=== PATIENT | female | born 1980 | race Two or more races ===

== ENCOUNTER 2024-08-28 10:13 | Emergency (ER) | payer MEDICAID ==
[~2024-08-28] VITALS: Ht 177.8 cm; Wt 68.0 kg
[2024-08-28 10:14] VITALS: O2SAT 100
[2024-08-28 10:28] VITALS: BP 121/84; PULSE 71; RESP 16; TEMP 36.7; O2SAT 99
[2024-08-28] MEDS ORDERED: IBUP-2030 MT (11:41)
== END 2024-08-28 12:48 | disposition left against medical advice (07) ==
LOC: ER 10:13
DX: S63.502A Unspecified sprain of left wrist, initial encounter (principal); S63.619A Unspecified sprain of unspecified finger, initial encounter; Z98.890 Other specified postprocedural states; Z88.5 Allergy status to narcotic agent; Z88.1 Allergy status to other antibiotic agents; W19.XXXA Unspecified fall, initial encounter; Y93.89 Activity, other specified; Y92.89 Other specified places as the place of occurrence of the external cause; Y99.8 Other external cause status
CPT/HCPCS: 73110; 73130; 99284

== ENCOUNTER 2024-09-15 12:53 | Emergency (ER) | payer MEDICAID ==
[~2024-09-15] VITALS: Ht 177.8 cm; Wt 70.0 kg
[~2024-09-15 12:53] MED LIST: IBUP-2030 MT
[2024-09-15 12:56] VITALS: O2SAT 98
[2024-09-15 13:17] VITALS: TEMP 36.7; O2SAT 99
[2024-09-15 15:42] VITALS: BP 107/64; PULSE 85; RESP 18; TEMP 98
[2024-09-15] MEDS: KETOROLAC 30MG/ML VIAL IM ONE (15:42)
[2024-09-15] MEDS: ACETAMINOPHEN 325MG TABLET PO ONE (15:42)
[2024-09-15] MEDS ORDERED: IBUP-2030 MT (16:52)
[2024-09-15] MEDS ORDERED: TOPUD PO (16:53)
== END 2024-09-15 17:08 | disposition home or self-care (01) ==
LOC: ER 12:53
DX: S82.831A Other fracture of upper and lower end of right fibula, initial encounter for closed fracture (principal); Z88.1 Allergy status to other antibiotic agents; Z88.5 Allergy status to narcotic agent; W10.9XXA Fall (on) (from) unspecified stairs and steps, initial encounter; Y93.89 Activity, other specified; Y92.89 Other specified places as the place of occurrence of the external cause; Y99.8 Other external cause status
CPT/HCPCS: 99283; 73610; 96372; J1885